=== PATIENT | male | born 1950 | race Two or more races ===

== ENCOUNTER 2021-09-25 12:06 | Emergency (ER) | payer MEDICARE, OTHER ==
[~2021-09-25] VITALS: Ht 182.9 cm; Wt 99.8 kg
[2021-09-25 13:03] LABS: Urine Bacteria NONE SEEN /hpf (None Seen); Urine Blood Negative /uL (Negative); Urine WBC 1 /hpf (0 - 3)
[2021-09-25 13:43] LABS: Basophils # (auto) 0.1 10 ^3/uL (0-0.2); Basophils % (auto) 0.7 % (0.0-2.0); Eosinophils # (auto) 0 10 ^3/uL (0-0.8); Eosinophils % (auto) 0.2 % (0.0-7.0); Hematocrit 45.8 % (41.0-53.0); Hemoglobin 15.6 g/dL (13.5-17.5); Lymphocytes # (auto) 0.9 10 ^3/uL (0.4-5.4); Lymphocytes % (auto) 9.6 % (10.0-50.0); Mean Corpuscular Hemoglobin 30.6 pg (28.0-32.0); Mean Corpuscular Hgb Conc. 34.1 g/dL (32.0-36.0); Mean Corpuscular Volume 89.9 fL (80.0-100.0); Monocytes # (auto) 0.4 10 ^3/uL (0-1.3); Monocytes % (auto) 4.5 % (0.0-12.0); Neutrophils # (auto) 7.5 10 ^3/uL (1.6-8.6); Red Cell Distribution Width 13.9 % (11.8-14.3); White Blood Cell 8.8 10^3/uL (4.4-10.8)
[2021-09-25] MEDS ORDERED: ONDANSETRON HCL 4 MG/2 ML VIAL IV ONE (14:00)
[2021-09-25] MEDS ORDERED: SODIUM CHLORIDE 0.9% 1,000 ML IV ONE (14:00)
[2021-09-25 14:01] LABS: Albumin 4.2 g/dL (3.4-5.0); Calcium 9.2 mg/dL (8.5-10.1); Potassium 4.6 mmol/L (3.5-5.1)
[2021-09-25 14:05] LABS: Bilirubin, Total 0.7 mg/dL (0.2-1.0); Total Protein 7.9 g/dL (6.4-8.2)
[2021-09-25 15:41] VITALS: BP 136/60
== END 2021-09-25 15:43 | disposition home or self-care (01) ==
LOC: ER 12:06
DX: R51.9 Headache, unspecified (principal); I10 Essential (primary) hypertension; E11.65 Type 2 diabetes mellitus with hyperglycemia
CPT/HCPCS: 36415; 70450; 80053; 81001; 84484; 85025; 96361; 96374; 99284; J2405; J7030

== ENCOUNTER 2025-03-17 06:14 | Inpatient (IN) | payer OTHER ==
[~2025-03-17] VITALS: Ht 182.9 cm; Wt 98.2 kg
[~2025-03-17 06:14] MED LIST: ATOR-47 PO; CYCL-611 PO; DEXT4CHW PO; DOXY-286 PO; EMPA1TAB3 PO; INSU100I28 IJ; INSU100I51 SC; KRIL1CAP15 PO; METF-372 PO; MULT-1018 PO; OXYB5SOL PO; SEMA1INJ2 SC
[2025-03-17] MEDS: ceFAZolin 2 GM/D5W50ml 50 ML IV ONE (06:17)
[2025-03-17] MEDS: levoFLOXacin 500MG 100 ML IV ONE (06:29)
[2025-03-17] MEDS: TRANEXAMIC ACID 20 ML ONE (06:30)
[2025-03-17] MEDS: LIDOCAINE W/ EPINEPHRINE 1% 20ML VIAL ONE (06:31)
[2025-03-17] MEDS: ONDANSETRON HCL 4 MG/2 ML VIAL IV ONE (07:15)
[2025-03-17] MEDS ORDERED: hydrALAZINE HCL 20 MG/ML VL IV PRN (07:15)
[2025-03-17] MEDS: METOCLOPRAMIDE HCL 5MG/ml INJ 2ml VIAL IV ONE (07:15)
[2025-03-17] MEDS: GELATIN 1 SPONGE SIZE 100 TOP ONE (07:22)
[2025-03-17] MEDS: THROMBIN (BOVINE) 5000 UNIT SOL VIAL ONE (07:22)
[2025-03-17] MEDS ORDERED: MIDAZOLAM HCL 2MG/2ML 2ml VIAL (1mg/ml) ONE (07:32)
[2025-03-17] MEDS ORDERED: fentaNYL CITRATE 100 MCG/2 ML VL ONE (07:32)
[2025-03-17] MEDS ORDERED: LIDOCAINE 1% INJ PF 5ML AMP ONE (07:33)
[2025-03-17] MEDS ORDERED: ROCURONIUM 10MG/ML 10ML VIAL IV ONE (07:33)
[2025-03-17] MEDS ORDERED: METOCLOPRAMIDE HCL 5MG/ml INJ 2ml VIAL ONE (07:33)
[2025-03-17] MEDS ORDERED: ONDANSETRON HCL 4 MG/2 ML VIAL ONE (07:33)
[2025-03-17] MEDS ORDERED: PROPOFOL 10 MG/ML 20 ML IV ONE ×3 (07:33→10:01)
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
--- NOTE | 2025-03-17 07:49 | DVHPN2 ---
Progress Note - Surgical Date Seen: Mar 18, 2025 Post op day Post op day: 1 Subjective Review of Systems: HEENT:Normal, CVS:Normal, RESPIRATORY:Normal, GI:Normal, :Normal, MSK:Abnormal (Lower leg pain right greater than left shooting burning sensation prior to surgery), NEURO:Abnormal (Pain with resistance to lifting knees off bed right greater than left prior to surgery) Objective Vital signs Vital Sign Date Time Temp Pulse Resp B/P (MAP) Pulse Ox O2 Delivery O2 Flow Rate FiO2 03/17/25 06:20 98.1 63 16 124/67 (86) 98 98.1 Total Intake and Output 03/16/25 03/16/25 03/17/25 15:00 23:00 07:00 Intake Total 100 ml Balance 100 ml Medications Current Medications Medications Dose Ordered Sig/Petros Route Start Time Stop Time Status Last Admin Dose Admin Hydralazine HCl 5 mg Q10M PRN IV 03/17/25 07:15 03/17/25 08:06 Hydromorphone HCl 0.5 mg Q10M PRN IV 03/17/25 07:15 03/17/25 07:56 Examination: GENERAL:Normal, HEENT:Normal, NECK:Normal, LUNGS:Normal, C VS:Normal, ABDOMEN:Normal, MSK:Normal (improving mobility), SKIN:Normal (jaquan seal intact, power source fuctioning drains intact), NEURO:Normal (improved in preoperative symptoms, however pain is troublesome), :Normal Problem List/Assessment/Plan Problems: (1) Postoperative pain after spinal surgery (2) Muscle spasm of back Assessment and Plan POD # 1 events of today, Patient experiencing expected postoperative pain, muscle spasms are stronger augustina n we would like - Flexeril discontinued and Soma added Patient is participating in independent movement We will keep drains in and reassess output tomorrow -Disposition: -Pending -Discharge RX: Pending -Follow up appointment: with Dr Uribe on prescheduled appointment in two weeks [id number] [facility] [address] [place] [id number] -Pain: - IV pain meds post op day 1, with PO supplementation, goal is to progress weaning off IV medications and control pain with PO only. morphine 1mg q 4 hours (PAIN 7-10) - P.O. analgesics:Tylenol 650MG (PAIN 1-3) [place] 10/325 mg (PAIN 4-6) - Muscle relaxers scheduled administration. This is a beneficial medications for the incisional pain as it is mostly related to muscle spasms. Flexeril 10 mg TID - Cepacol throat lozenges as needed for sore throat -Antibiotics Operative recommendations: -Postoperative dose:-Post operative antibiotics cefazolin 1 g IV piggyback every 8 hours x 48 hours total of 6 doses -DVT PPX: -Hold all chemical DVT/ blood thinners for 14 days postoperatively -use mechanical DVT PPX such as SCD's, ambulation -Activity: -Pending PT evaluation and patients progression -Sit at side of bed for meals -Goal: Ambulate independently and safely (may use assistive devices if needed) -Medical Therapy goals: -Afebrile- Patient may develop a expected post operative fever by day 2-3, this may not be accompanied with a elevation in WBC. if fever develops: Acetaminophen for fever. Albuterol nebulizer Tx every 12 hours for 24 hours to facilitate adequate lung expansion and prevent development of atelectasis. -Euglycemic: bloods sugars under 130mmol/L for optimal healing -Normotensive: Avoid events of hypertension. This helps to keep post operative healing intact and avoids destabilization of beneficial hemostatic coagulation. -Lumbar: -If patient is comfortable encouraged the patient to lay on their side to facilitate wound healing -Drains: -Hemovac drains: These will be to full compression unless otherwise ordered. Please record and document output AND characteristic of fluid present independently EVERY 6 hours more often as needed. if there in no output indicate this by documenting 0ml. If output is greater than 100 ml in one hour of edie blood call provider. These drains will be removed once the drainage is at a acceptable level (generally less than 100ml in 24 hours) -Jaquan dressing: This will stay in place and will be removed at the patients follow up visit. Nursing is to assess the seal and power source. The seal should be intact and the power source should have a green flashing light indicating it is functioning well. Batteries can last up to 14 days. If a leak develops the dressing edges can be reinforced with a Tegaderm dressing to reestablish intact seal. The Jaquan dressing is NOT a wound vac. This does not get changed, it does not need home health management. -Record output independently, drain 1. Is a deep drain and drain 2. Is a superficial drain. Wound drainage is described by type, color, amount, and odor. Drainage can be 1 Serous: Clear and thin, may be present in healing healthy wound. 2 Serosanguineous containing blood may also be present and healthy healing wound 3. Sanguinous primarily blood 4. Purulent this is thick, white, and pus like. It may be indicated to give of a infection and should constitute a call to the provider immediately with the plan that the sample should be cultured. -Melvin: discontinued in OR -Dressings Take care not to disrupt the JAQUAN dressing seal. If there is a break in the seal it can be trouble shot with a Tegaderm dressing. -Dressing to Hemovac drains may be changed once the drains have been removed by the provider. -Bowel management: -Colace 100mg bid -Diet: -Clear liquid diet and advance as patient tolerates within dietary limitations ( example: diabetic, Cardiac) -Incentive Spirometer: -10 x hour while awake, RN please educate and observe repeat demonstration, have IS at bedside POD #1 -X-rays: - none indicated at this time -Consults: -Physical Therapy evaluation, treatment recommendations, and discharge re commendations Call with questions Yunior Wilson ACNP- Orthopaedic Spine Surgery nurse practitioner For Dr Kiley Uribe Patient was examined, chart reviewed, labs evaluated, and diagnostic studies and findings analyzed. Case was discussed with Dr. Feliberto Uribe who formulated the plan of care. This medical document was created using an electronic medical record system with [employer] dictation system. Although this document has been carefully reviewed, there might still be some phonetic and typographical errors. These areas are purely typographical due to imperfections of the software programs, and do not reflect any compromise in the patient's medical care. Plan discussed with Plan discussed with: Patient Visit Coding Surgery Date of Service if different f: Mar 17, 2025 Billing Provider: CHRISTINA WILSON NP Surgery Visit Codes: NOT BILLABLE CHRISTINA WILSON NP Mar 17, 2025 07:49
[2025-03-17] MEDS ORDERED: ePHEDrine SULFATE 50 MG/ML AMP ONE (08:17)
[2025-03-17] MEDS ORDERED: fentaNYL CITRATE 5 ML ONE (08:36)
[2025-03-17] MEDS ORDERED: ONDANSETRON HCL 4 MG/2 ML VIAL IV PRN (11:00)
[2025-03-17] MEDS ORDERED: D5W/SOD CHLO 0.9% 1,000 ML IV SCH (11:00)
[2025-03-17] MEDS ORDERED: NITROGLYCERIN 0.4 MG SL TAB SL PRN (11:00)
[2025-03-17] MEDS ORDERED: MORPHINE SULFATE INJ 2 MG/ml SYRG IV PRN (11:00)
--- NOTE | 2025-03-17 11:07 | DVHOP2 ---
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 These include but are not limited to complications of anesthesia, postoperative infection, incomplete relief of symptoms, recurrence of symptoms, damage to blood vessels, nerves and tendons, deep venous thrombosis, pulmonary embolism and possible need for repeat surgery in the future. Name of Procedure Performed see detailed note Procedure Details Procedure Details: Pre-op Diagnosis: Post laminectomy syndrome/ Lumbar Degenerative Disk Disease and Lumbar Spinal Stenosis causing Incapacitating back pain, radiculopathy/n eurogenic claudication and progressive neurologic deficit Post-op Diagnosis: Lumbar Degenerative Disk Disease and Lumbar Spinal Stenosis causing Incapacitating back pain, radiculopathy/neurogenic claudication and progressive neurologic deficit Procedure: Revision lumbar 5 laminotomies/ foraminotomies and facetectomies to decompress central canal and Lumbar 5 nerve roots Revision lumbar 4 laminotomies/ foraminotomies and facetectomies to decompress central canal and Lumbar 4 nerve roots Bilateral Sacral 1 Laminotomies/Foraminotomies/Facetectomies to decompress the central canal and Bilateral Sacral 1 nerve Roots Lumbar 4 to 5 posterior spinal interbody fusion with PEEK cage Lumbar 5 to sacral 1 posterior spinal inter transverse fusion with bone graft Lumbar 4 to sacral 1 posterior spinal instrumentation with pedicle screws Local Bone Autograft For Fusion Allograft Bone Substitute (Bacterin) to augment Fusion Use of Demineralized Bone Matrix to Augment Fusion Microscope For Microdissection Surgeon: Feliberto Uribe MD Assist: ROBYN Sanchez Anesthesia: General Fluids and EBL: See anesthesia note Patient was seen in the Pre Anesthesia Care Unit (PACU) and the operative site was initialed by me. All questions were answered to the patients satisfaction and chart reviewed. The patient was taken to the operative room where pre- operative antibiotics were given 30 minutes prior to incision. General anesthesia was induced and neuro-monitoring leads placed. Melvin catheter was placed. The patient was turned prone onto the [facility] spinal table. While positioning, I made sure that the belly was free to allow proper expansion of the lungs. The hips were extended and all bony prominences padded. The shoulders were abducted 80 degree and the elbows flexed 100 degrees with no tension on the brachial plexus. I check the foot arterial pulses and they were palpable. The patient was prepped and draped and time out was taken at this time per usual protocol. At this time, the C-arm fluoroscope was brought in and was used to cristian the incision borders proximally and distally. I used the previous lumbar incision and extended it proximally and distally Using a Number 10 Blade, an incision was made extending it proximally and distally per C arm cristian from the posterior spinous process of lumbar 4 to sacral 1 , down to the lumbo-dorsal fascia. There was extensive scarring on the right side at the lumbar 5 and 4 laminae. All bleeding was controlled with electrocautery. Self-retaining retractors were placed. Electrocautery was then used to take down the lumbo-dorsal fascia, to free the muscle off the bone bilaterally. A Freeman retractor was placed over the posterior spinous process proximally and a lateral C-arm fluoroscope image was taken to insure we were at the correct level. Next, using bovie electro cautery, The deep fascia laterally to the facet joints was removed to expose the transverse processes of lumbar 4,5 and sacral 1 while taking care to avoid injuring the facet capsule at the proximal end of the incision. Next, the microscope was bought in for visualization and using a Luxell rongeur, the posterior spinous process of lumbar 4,5 and sacral 1 were removed and the bone was saved for use as local autograft. Care had to be taken since there was only incomplete posterior spinous processes remaining and it was important to not injure the dura at this step. I used alternating Kerison 2 mm and 3 mm rongeurs to perform revision laminotomies/foraminotomies and facetectomies of lumbar 5 and 4 and bilateral laminotomies/foramintomies of sacral 1 to decompress the central canal. I used curved curettes to released the scarred dura from the superior articular facets of lumbar 4 and 5 bilaterally. Next using alternating Kerison 2mm and 3 mm rongeurs, the superior articular facets of lumbar 4,5, and sacral 1 were removed bilaterally to decompress the lateral recess (facetectomies) and then extended proximally to decompress the foramen bilaterally (foraminotomies). I used a ball tipped nerve probed to insure that the respective nerve roots were able to be mobilized 5mm in each direction were unimpeded in the lateral recess and foramen. Next I carefully inspected the dura to make sure no durotomy was visible and it was not. Next I retracted the sacral 1 nerve on the right and used increasing size sussy and curved curettes to prepare the disc space down to clean and bleeding bone. Next sued increasing size sussy and placed a PEEK interbody device fulled with bone graft in the L4/5 space. I used local bone autograft to place in the intertransverse space at L4/5 and L/5 and S1 . I covered the exposed dura with gelfoam soaked in thrombin and the microscope was wheeled away from the operative filed. The C-arm fluoroscope was brought in and perfect AP views of the lumbar 4, 5 and sacral 1 pedicles were obtained. I placed bilateral pedicle screws at these levels by: using a Lenke awl to make a towing pilot hole, then a ball tip robe to make sure there was no pedicle breach, then a tap to prepare the track and a 6.5 mm diameter and 45mm for lumbar 4, 5 and for sacral 1 a 35mm length pedicle screw was placed bilaterally. This step to place bilateral pedicle screws was repeated up to the lumbar 4, 5 and sacral 1 level. Next, the c-arm fluoroscope took an AP and lateral x-ray to ensure proper placement of the pedicle screws. Next, the neuro-stimulation probe was placed over the tip of each screw and each screw stimulated only after a current greater than 10 mA was delivered to the screw. Next , I took a Midas Manish Drill to decorticate the transverse process which were exposed and local bone graft, Bacterin allograft bone substitute and Demineralized bone matrix were placed along the inter transverse process intervals bilaterally (the fusion bed). Next a curved nenita sized to fit the pedicle screw interval was placed and secured to each pedicle screw using set screws, The set screws were tightened using a torque screwdriver (set to 10 N*M torque) to secure the nenita to the pedicle screws bilaterally. Final AP and lateral C arm fluoroscopic films were taken at this time. Next a 10 Indian diameter Hemovac drain was laced deep to the lumbo- dorsal fascia. The lumbo-dorsal fascia was closed with interrupted 0-Vicry sutures. The subcutaneous tissue was closed with interrupted 2-0 Vicryl sutures. The skin was closed with 2-0 running nylon subcuticular suture. Sterile dressings were place. The pt. was turned supine onto the stretcher, extubated and taken to the recovery room in stable condition. CPT Code: [id number] Condition Stable Disposition Still a Patient FELIBERTO URIBE MD Mar 17, 2025 11:07
[2025-03-17 11:34] VITALS: O2SAT 100
[2025-03-17] MEDS: ACETAMINOPHEN IV 1000 MG/100ML (10MG/ML) IV ONE (12:02)
[2025-03-17] MEDS: ACETAMINOPHEN IV 100 ML IV ONE (12:12)
[2025-03-17] MEDS: HYDROmorphone HCL 2 MG/ML VL/or syr ONE (12:22)
[2025-03-17] MEDS: HYDROmorphone HCL 2 MG/ML VL/or syr IV PRN (12:23)
[2025-03-17] MEDS: LACTATED RINGER'S 1,000 ML IV SCH (13:00)
--- NOTE | 2025-03-17 13:10 | DVH ---
C-ARM FLUOROSCOPY: PROCEDURE: L4-S1 decompression FLUOROSCOPY TIME: 165 seconds DAP: 135 mgy FINDINGS: Spot intraoperative C arm radiographs demonstrating lumbosacral spine decompression. IMPRESSION: Please refer to surgical report for detailed findings.
[2025-03-17] MEDS: CYCLOBENZAPRINE HCL 10 MG TAB PO SCH (13:14)
[2025-03-17] MEDS: ceFAZolin 1GM/50ML 50 ML IV SCH (14:00)
[2025-03-17] MEDS: HYDROcodone-ACET 10/325MG TAB PO PRN (14:44)
[2025-03-17] MEDS: metFORMIN HYDROCHLORIDE 500 MG TAB PO SCH (18:10)
[2025-03-17] MEDS: MORPHINE SULFATE INJ 2 MG/ml SYRG IV PRN (18:14)
[2025-03-17 20:00] VITALS: PULSE 109; RESP 16; O2SAT 95
[2025-03-17 20:57] VITALS: BP 144/81; PULSE 85; RESP 16; TEMP 98.6; O2SAT 95
[2025-03-17] MEDS: DOCUSATE SOD 100 MG CAP PO SCH (21:49)
[2025-03-18] VITALS (7 sets, daily range): BP systolic 114–156; BP diastolic 62–80; PULSE 87–142; RESP 16–20; TEMP 97.8–99.7; O2SAT 90–95
[2025-03-18] MEDS: CARISOPRODOL 350 MG TAB PO ONE (15:52)
--- NOTE | 2025-03-18 16:54 | DVHINCON2 ---
Date Seen: Mar 18, 2025 Referring Physician Orthopedic spine surgery. Reason for Consultation Medical management. History of Present Illness 74-year-old male with a known history of insulin-dependent diabetes mellitus type 2, hypertension, dyslipidemia initially admitted to the hospital with post laminectomy syndrome. Patient underwent lumbar spine surgery at L 4-5 S1 level. Patient is currently denies any fevers chills headache denies any chest pain shortness of breath. Past Medical History Insulin-dependent diabetes mellitus type 2 Hypertension Dyslipidemia Past Surgical History Status post lumbar spine surgery at L four five S1 level. Family History: Patient reports no known family medical history. Allergies: Coded Allergies: Insulin Glargine (Unverified Allergy, Severe, anaphylaxis, rash , 03/15/25) Home Meds Reported Medications Insulin Aspart (Novolog) 100 Unit/Ml Inj, 100 UNIT IJ BID, INJ 03/15/25 Semaglutide (Ozempic) 8 Mg/3 Ml Inj, 10 MG SC QWEEKLY, INJ 03/15/25 Cyclobenzaprine HCl (Cyclobenzaprine Hydrochlo) 10 Mg Tab, 10 MG PO DAILY, TAB 03/15/25 Multiple Vitamin (Multivitamins) Tab, 1 TAB PO DAILY, #30 TAB 2 Refills 03/15/25 Insulin Aspart (Insulin Aspart Flexpen) 100 Unit/Ml Inj, 100 UNIT SC DAILY@D INNER, INJ 03/15/25 Dextrose (Glucose) 4 Gm Chw, 4 GM PO PRN, TAB.CHEW 03/15/25 Metformin Hydrochloride (Metformin Hcl) 1,000 Mg Tab, 1000 MG PO BID, TAB 03/15/25 Krill Oil (Krill Oil) 1,000 Mg Cap, 1000 MG PO DAILY, CAP 03/15/25 Oxybutynin Chloride (Oxybutynin Chloride) 5 Mg/5 Ml Norma, 10 MG PO, ML 03/15/25 Empagliflozin (Jardiance) 25 Mg Tab, 25 MG PO DAILY, TAB 03/15/25 Doxycycline Hyclate (DOXYCYCLINE HYCLATE) 100 Mg Tab, 100 MG PO BID, TAB 03/15/25 Atorvastatin Calcium (ATORVASTATIN CALCIUM) 80 Mg Tab, 80 MG PO DAILY, TAB 03/15/25 Current Medications Current Medications Medications (Trade) Dose Ordered Sig/Petros Route PRN Reason Start Time Stop Time Status Last Admin Docusate Sodium (Colace Capsule) 100 mg BID PO 03/17/25 22:00 03/18/25 08:13 Metformin HCl (Glucophage) 1,000 mg BIDWM PO 03/17/25 18:00 03/18/25 08:13 Carisoprodol (Soma Tablet) 350 mg TID PO 03/18/25 22:00 Morphine Sulfate 2 mg Q4HP PRN IV SEVERE PAIN (7-10 PAIN SCALE) 03/18/25 15:45 Review of Systems Twelve review of system are negative besides mentioned above. 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 Labs/Diagnostic Data Labs Test 03/17/25 11:40 Range/Units POC Glucose 131 H 70-106 mg/dl Assessment 74-year-old male with a known history of insulin-dependent diabetes mellitus type 2, hypertension, dyslipidemia is here for elective surgery. 1. Hypertension 2. Diabetes mellitus type 2 3. Dyslipidemia 4. Post laminectomy syndrome status post L4-5 S1 spine surgery. -continue pain meds as needed, follow up orthopedic spine surgery, Accu-Cheks q.a.c. and HS low-dose sliding scale. Plan discussed with: Patient Date of Service: Mar 18, 2025 Billing Provider: DEWEY GIBBONS MD Common Visit Codes: NOT BILLABLE DEWEY GIBBONS MD Mar 18, 2025 16:54
[2025-03-18] MEDS: CARISOPRODOL 350 MG TAB PO SCH (22:22)
[2025-03-18] MEDS: MORPHINE SULFATE INJ 2 MG/ml SYRG IV PRN (22:37)
[2025-03-19] VITALS (7 sets, daily range): BP systolic 128–163; BP diastolic 61–74; PULSE 91–140; RESP 17–20; TEMP 98.1–99.6; O2SAT 92–95
--- NOTE | 2025-03-19 11:10 | DVHPN2 ---
Progress Note - Surgical Date Seen: Mar 17, 2025 Post op day Post op day: 2 Subjective Patient reports: No new complaints, Feels better Review of Systems: HEENT:Normal, CVS:Normal, RESPIRATORY:Normal, GI:Normal, :Normal, MSK:Abnormal (Lower leg pain right greater than left shooting burning sensation prior to surgery), NEURO:Normal Objective Vital signs Vital Sign Date Time Temp Pulse Resp B/P (MAP) Pulse Ox O2 Delivery O2 Flow Rate FiO2 03/19/25 09:00 98.1 101 19 134/69 (90) 92 98.1 03/19/25 08:20 Room Air* 0 21 Total Intake and Output 0 03/18/25 03/18/25 03/19/25 15:00 23:00 07:00 Intake Total 118 ml 1050 ml 400 ml Output Total 530 ml 1000 ml Balance -412 ml 1050 ml -600 ml Medications Current Medications Medications Dose Ordered Sig/Petros Route Start Time Stop Time Status Last Admin Dose Admin Ondansetron HCl 4 mg Q4HP PRN IV 03/17/25 11:00 Acetaminophen 650 mg Q6HP PRN PO 03/17/25 11:00 Acetaminophen/ Hydrocodone Bitart 1 tab Q6HP PRN PO 03/17/25 11:00 03/19/25 06:45 1 TAB Docusate Sodium 100 mg BID PO 03/17/25 22:00 03/19/25 09:39 100 MG Nitroglycerin 0.4 mg Q5MINP PRN SL 03/17/25 11:00 Morphine Sulfate 2 mg Q30M PRN IV 03/17/25 11:00 Metformin HCl 1,000 mg BIDWM PO 03/17/25 18:00 03/19/25 08:41 1,000 MG Lactated Ringer's 1,000 ml @ 75 mls/hr [id number] IV 03/17/25 13:00 03/19/25 05:09 75 MLS/HR Carisoprodol 350 mg TID PO 03/18/25 22:00 03/19/25 06:31 350 MG Morphine Sulfate 2 mg Q4HP PRN IV 03/18/25 15:45 03/18/25 22:37 2 MG Examination: GENERAL:Normal, HEENT:Normal, NECK:Normal, LUNGS:Normal, CVS:Normal, ABDOMEN:Normal, MSK:Normal (Muscle skeletal symptoms are improving from his preoperative state), SKIN:Normal (Jaquan dressing intact drains intact), NEURO:Normal (Pain with resistance to lifting knees off bed right greater than left prior to surgery- currently), :Normal (Patient is improving and progressing to discharge) Problem List/Assessment/Plan Problems: (1) Postoperative pain after spinal surgery (2) Muscle spasm of back Assessment and Plan POD # 2 events of today, Patient experiencing expected postoperative pain, muscle spasms are reported to be improved with Soma Patient is participating in independent movement- patient is up and ambulating independently, patient is demonstrating abdominal distention he is passing flatus however has not had a bowel movement medications ordered We will keep drain #1 due to output of 150 mL in 24 hours and reassess output tomorrow Drain 2. Was discontinued without event Patient is progressing well -Disposition: -Pending -Discharge RX: Pending -Follow up appointment: with Dr Uribe on prescheduled appointment in two weeks [phone] [facility] [address] [place] [id number] -Pain: - IV pain meds post op day 1, with PO supplementation, goal is to progress wean ing off IV medications and control pain with PO only. morphine 1mg q 4 hours (PAIN 7-10) - P.O. analgesics:Tylenol 650MG (PAIN 1-3) [place] 10/325 mg (PAIN 4-6) - Muscle relaxers scheduled administration. This is a beneficial medications for the incisional pain as it is mostly related to muscle spasms. Flexeril 10 mg TID - Cepacol throat lozenges as needed for sore throat -Antibiotics Operative recommendations: -Postoperative dose:-Post operative antibiotics cefazolin 1 g IV piggyback every 8 hours x 48 hours total of 6 doses -DVT PPX: -Hold all chemical DVT/ blood thinners for 14 days postoperatively -use mechanical DVT PPX such as SCD's, ambulation -Activity: -Pending PT evaluation and patients progression -Sit at side of bed for meals -Goal: Ambulate independently and safely (may use assistive devices if needed) -Medical Therapy goals: -Afebrile- Patient may develop a expected post operative fever by day 2-3, this may not be accompanied with a elevation in WBC. if fever develops: Acetaminophen for fever. Albuterol nebulizer Tx every 12 hours for 24 hours to facilitate adequate lung expansion and prevent development of atelectasis. -Euglycemic: bloods sugars under 130mmol/L for optimal healing -Normotensive: Avoid events of hypertension. This helps to keep post operative healing intact and avoids destabilization of beneficial hemostatic coagulation. -Lumbar: -If patient is comfortable encouraged the patient to lay on their side to facilitate wound healing -Drains: -Hemovac drains: These will be to full compression unless otherwise ordered. Please record and document output AND characteristic of fluid present independently EVERY 6 hours more often as needed. if there in no output indicate this by documenting 0ml. If output is greater than 100 ml in one hour of edie blood call provider. These drains will be removed once the drainage is at a acceptable level (generally less than 100ml in 24 hours) -Jaquan dressing: This will stay in place and will be removed at the patients follow up visit. Nursing is to assess the seal and power source. The seal should be intact and the power source should have a green flashing light indicating it is functioning well. Batteries can last up to 14 days. If a leak develops the dressing edges can be reinforced with a Tegaderm dressing to reestablish intact seal. The Jaquan dressing is NOT a wound vac. This does not get changed, it does not need home health management. -Record output independently, drain 1. Is a deep drain and drain 2. Is a superficial drain. Wound drainage is described by type, color, amount, and odor. Drainage can be 1 Serous: Clear and thin, may be present in healing healthy wound. 2 Serosanguineous containing blood may also be present and healthy healing wound 3. Sanguinous primarily blood 4. Purulent this is thick, white, and pus like. It may be indicated to give of a infection and should constitute a call to the provider immediately with the plan that the sample should be cultured. -Melvin: discontinued in OR -Dressings Take care not to disrupt the JAQUAN dressing seal. If there is a break in the seal it can be trouble shot with a Tegaderm dressing. -Dressing to Hemovac drains may be changed once the drains have been removed by the provider. -Bowel management: -Colace 100mg bid -Diet: -Clear liquid diet and advance as patient tolerates within dietary limitations ( example: diabetic, Cardiac) -Incentive Spirometer: -10 x hour while awake, RN please educate and observe repeat demonstration, have IS at bedside POD #1 -X-rays: - none indicated at this time -Consults: -Physical Therapy evaluation, treatment recommendations, and discharge recommendations Call with questions Yuinor Wilson ACNP- Orthopaedic Spine Surgery nurse practitioner For Dr Kiley Uribe Patient was examined, chart reviewed, labs evaluated, and diagnostic studies and findings analyzed. Case was discussed with Dr. Feliberto Uribe who formulated the plan of care. This medical document was created using an electronic medical record system with [employer] dictation system. Although this document has been carefully reviewed, there might still be some phonetic and typographical errors. These areas are purely typographical due to imperfections of the software programs, and do not reflect any compromise in the patient's medical care. My Orders My Orders Orders - CHRISTINA WILSON NP Procedure Category Date Status Time Carisoprodol Tablet PHA 03/18/25 In Process (Soma Tablet) 22:00 Plan discussed with Plan discussed with: Patient, Other (Cyn cabrera 12/29/2003) Visit Coding Surgery Date of Service if different f: Mar 17, 2025 Billing Provider: CHRISTINA WILSON NP Surgery Visit Codes: NOT BILLABLE CHRISTINA WILSON NP Mar 19, 2025 11:10
[2025-03-19 17:35] LABS: Basophils # (auto) 0.1 10 ^3/uL (0-0.2); Basophils % (auto) 0.5 % (0.0-2.0); Eosinophils # (auto) 0.1 10 ^3/uL (0-0.8); Eosinophils % (auto) 0.5 % (0.0-7.0); Hematocrit 42.3 % (41.0-53.0); Hemoglobin 14.2 g/dL (13.5-17.5); Lymphocytes # (auto) 1.1 10 ^3/uL (0.4-5.4); Lymphocytes % (auto) 8.5 % (10.0-50.0); Mean Corpuscular Hemoglobin 30.4 pg (28.0-32.0); Mean Corpuscular Hgb Conc. 33.6 g/dL (32.0-36.0); Mean Corpuscular Volume 90.7 fL (80.0-100.0); Monocytes # (auto) 1.1 10 ^3/uL (0-1.3); Monocytes % (auto) 8.5 % (0.0-12.0); Neutrophils # (auto) 10.6 10 ^3/uL (1.6-8.6); Platelet Count (auto) 229 10^3/uL (140-450); Red Blood Cells 4.66 10^6/uL (4.5-5.90); Red Cell Distribution Width 13.4 % (11.8-14.3)
[2025-03-19 17:41] LABS: Chloride 101 mmol/L (98-107); Potassium 4.1 mmol/L (3.5-5.1); Sodium 138 mmol/L (136-145)
[2025-03-19 17:42] LABS: Anion Gap 9 (5-15); Calcium 9.9 mg/dL (8.7-10.4); Carbon Dioxide 28 mmol/L (20-31)
[2025-03-19 17:47] LABS: BUN/Creatinine Ratio 12.2 (10.0-20.0); Blood Urea Nitrogen 12 mg/dL (9-23)
[2025-03-19 18:19] LABS: Glucose 265 mg/dL (74-106)
[2025-03-19] MEDS: MAGNESIUM CITRATE SOLUTION 300 ML BTL PO ONE (18:22)
--- NOTE | 2025-03-19 18:40 | DVHPN2 ---
Subjective Overnight events noted patient is complaining of right lower extremity numbness Reviewed: Care Plan Changes from previous H/P or p: No Changes Objective Vitals Vital Signs Date Time Temp Pulse Resp B/P (MAP) Pulse Ox O2 Delivery O2 Flow Rate FiO2 03/19/25 17:00 98.1 108 20 163/74 (103) 95 98.1 03/19/25 08:20 Room Air* 0 21 Intake/Output Intake and Output 03/19/25 07:00 Intake Total 1568 ml Output Total 1530 ml Balance 38 ml Intake Oral 718 ml IV Total 850 ml Output Urine Total 1450 ml Drainage Total 80 ml # Voids 2 Exam HEENT pupils are reactive Neck is supple CV is S1-S2 regular rate and rhythm Respiratory are clear GI positive bowel sound 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 Medications Current Medications Medications Dose Ordered Sig/Petros Route Start Time Stop Time Status Last Admin Dose Admin Ondansetron HCl 4 mg Q4HP PRN IV 03/17/25 11:00 Acetaminophen 650 mg Q6HP PRN PO 03/17/25 11:00 Acetaminophen/ Hydrocodone Bitart 1 tab Q6HP PRN PO 03/17/25 11:00 03/19/25 06:45 1 TAB Docusate Sodium 100 mg BID PO 03/17/25 22:00 03/19/25 09:39 100 MG Nitroglycerin 0.4 mg Q5MINP PRN SL 03/17/25 11:00 Morphine Sulfate 2 mg Q30M PRN IV 03/17/25 11:00 Metformin HCl 1,000 mg BIDWM PO 03/17/25 18:00 03/19/25 18:07 1,000 MG Lactated Ringer's 1,000 ml @ 75 mls/hr [id number] IV 03/17/25 13:00 03/19/25 18:07 75 MLS/HR Carisoprodol 350 mg TID PO 03/18/25 22:00 03/19/25 14:17 350 MG Morphine Sulfate 2 mg Q4HP PRN IV 03/18/25 15:45 03/18/25 22:37 2 MG Laboratory Results Laboratory Tests 03/19/25 17:13 Chemistry Test 03/19/25 17:13 Calcium Level 9.9 mg/dL (8.7-10.4) Assessment/Plan Assessment/Plan 74-year-old male with a known history of insulin-dependent diabetes mellitus type 2, hypertension, dyslipidemia is here for elective surgery. 1. Hypertension 2. Diabetes mellitus type 2 3. Dyslipidemia 4. Post laminectomy syndrome status post L4-5 S1 spine surgery. -continue pain meds as needed, follow up orthopedic spine surgery, Accu-Cheks q.a.c. and HS low-dose sliding scal Plan discussed with: Patient Date of Service: Mar 19, 2025 Billing Provider: DEWEY GIBBONS MD Common Visit Codes: NOT BILLABLE DEWEY GIBBONS MD Mar 19, 2025 18:40
[2025-03-20 01:00] VITALS: BP 152/77; PULSE 102; RESP 18; TEMP 98.7; O2SAT 92
[2025-03-20 05:00] VITALS: BP 135/76; PULSE 105; RESP 18; TEMP 98.9; O2SAT 90
[2025-03-20] MEDS: ACETAMINOPHEN 325 MG TAB PO PRN (08:58)
[2025-03-20 09:00] VITALS: BP 124/72; PULSE 103; RESP 18; TEMP 100.1; O2SAT 100
[2025-03-20] MEDS ORDERED: DEXTROSE (50%) 50ML SYRG IV PRN (12:15)
[2025-03-20] MEDS: InsuLIN REG 1unit/0.01ml Soln (100units/ml) SC SCH ×2 (12:28→21:32)
--- NOTE | 2025-03-20 12:36 | DVHPN2 ---
Progress Note - Surgical Date Seen: Mar 20, 2025 Post op day Post op day: 3 Subjective Patient reports: No new complaints, Feels better Review of Systems: MSK:Abnormal ((Lower leg pain right greater than left shooting burning sensation prior), NEURO:Abnormal ( (Pain with resistance to lifting knees off bed) Objective Vital signs Vital Sign Date Time Temp Pulse Resp B/P (MAP) Pulse Ox O2 Delivery O2 Flow Rate FiO2 03/20/25 09:00 100.1 103 18 124/72 (89) 100 100.1 03/20/25 08:00 Room Air* 0 21 Total Intake and Output 03/19/25 03/19/25 03/20/25 15:00 23:00 07:00 Intake Total 400 ml 240 ml Balance 400 ml 240 ml Medications Current Medications Medications Dose Ordered Sig/Petros Route Start Time Stop Time Status Last Admin Dose Admin Ondansetron HCl 4 mg Q4HP PRN IV 03/17/25 11:00 Acetaminophen 650 mg Q6HP PRN PO 03/17/25 11:00 03/20/25 08:58 650 MG Acetaminophen/ Hydrocodone Bitart 1 tab Q6HP PRN PO 03/17/25 11:00 03/19/25 06:45 1 TAB Docusate Sodium 100 mg BID PO 03/17/25 22:00 03/20/25 08:58 100 MG Nitroglycerin 0.4 mg Q5MINP PRN SL 03/17/25 11:00 Morphine Sulfate 2 mg Q30M PRN IV 03/17/25 11:00 Metformin HCl 1,000 mg BIDWM PO 03/17/25 18:00 03/20/25 08:57 1,000 MG Lactated Ringer's 1,000 ml @ 75 mls/hr [id number] IV 03/17/25 13:00 03/20/25 08:57 75 MLS/HR Carisoprodol 350 mg TID PO 03/18/25 22:00 03/20/25 06:08 350 MG Morphine Sulfate 2 mg Q4HP PRN IV 03/18/25 15:45 03/18/25 22:37 2 MG Diagnostic Test (Pha) 1 strip ACHS 03/20/25 17:00 Insulin Human Regular HS SC 03/20/25 22:00 Insulin Human Regular AC SC 03/20/25 12:30 Dextrose 50 ml UD PRN IV 03/20/25 12:15 Laboratory Laboratory Tests 03/19/25 17:13 Test 03/19/25 17:13 Range/Units Serum Glucose 265 H 74-106 mg/dL Examination: GENERAL:Normal, HEENT:Normal, NECK:Normal, LUNGS:Normal, CVS:Normal, MSK:Normal, SKIN:Normal (dressing intact, drain intact), NEURO:Normal (inmproving), :Normal Problem List/Assessment/Plan Problems: (1) Postoperative pain after spinal surgery (2) Muscle spasm of back Assessment and Plan POD # 3 events of today, Patient experiencing expected postoperative pain, muscle spasms are reported to be improved with Soma Patient is participating in independent movement- patient is up and ambulating independently, patient is demonstrating abdominal distention he is passing flatus however has not had a bowel movement medications ordered Patient had a fall event 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 plan to DC tomorrow am Patient is progressing well -Disposition: home with home health -Discharge RX: Pending -Follow up appointment: with Dr Uribe on prescheduled appointment in two weeks [id number] [facility] [address]berg [address] [place] [id number] -Pain: - IV pain meds post op day 1, with PO supplementation, goal is to progress weaning off IV medications and control pain with PO only. morphine 1mg q 4 hours (PAIN 7-10) - P.O. analgesics:Tylenol 650MG (PAIN 1-3) [place] 10/325 mg (PAIN 4-6) - Muscle relaxers scheduled administration. This is a beneficial medications for the incisional pain as it is mostly related to muscle spasms. Flexeril 10 mg TID - Cepacol throat lozenges as needed for sore throat -Antibiotics Operative recommendations: -Postoperative dose:-Post operative antibiotics cefazolin 1 g IV piggyback every 8 hours x 48 hours total of 6 doses -DVT PPX: -Hold all chemical DVT/ blood thinners for 14 days postoperatively -use mechanical DVT PPX such as SCD's, ambulation -Activity: -Pending PT evaluation and patients progression -Sit at side of bed for meals -Goal: Ambulate independently and safely (may use assistive devices if needed) -Medical Therapy goals: -Afebrile- Patient may develop a expected post operative fever by day 2-3, this may not be accompanied with a elevation in WBC. if fever develops: Acetaminophen for fever. Albuterol nebulizer Tx every 12 hours for 24 hours to facilitate adequate lung expansion and prevent development of atelectasis. -Euglycemic: bloods sugars under 130mmol/L for optimal healing -Normotensive: Avoid events of hypertension. This helps to keep post operative healing intact and avoids destabilization of beneficial hemostatic coagulation. -Lumbar: -If patient is comfortable encouraged the patient to lay on their side to facilitate wound healing -Drains: -Hemovac drains: These will be to full compression unless otherwise ordered. Please record and document output AND characteristic of fluid present independently EVERY 6 hours more often as needed. if there in no output indicate this by documenting 0ml. If output is greater than 100 ml in one hour of edie blood call provider. These drains will be removed once the drainage is at a acceptable level (generally less than 100ml in 24 hours) -Jaquan dressing: This will stay in place and will be removed at the patients follow up visit. Nursing is to assess the seal and power source. The seal should be intact and the power source should have a green flashing light indicating it is functioning well. Batteries can last up to 14 days. If a leak develops the dressing edges can be reinforced with a Tegaderm dressing to reestablish intact seal. The Jaquan dressing is NOT a wound vac. This does not get changed, it does not need home health management. -Record output independently, drain 1. Is a deep drain and drain 2. Is a superficial drain. Wound drainage is described by type, color, amount, and odor. Drainage can be 1 Serous: Clear and thin, may be present in healing healthy wound. 2 Serosanguineous containing blood may also be present and healthy healing wound 3. Sanguinous primarily blood 4. Purulent this is thick, white, and pus like. It may be indicated to give of a infection and should constitute a call to the provider immediately with the plan that the sample should be cultured. -Melvin: discontinued in OR -Dressings Take care not to disrupt the JAQUAN dressing seal. If there is a break in the seal it can be trouble shot with a Tegaderm dressing. -Dressing to Hemovac drains may be changed once the drains have been removed by the provider. -Bowel management: -Colace 100mg bid -Diet: tolerating -Incentive Spirometer: -10 x hour while awake, RN please educate and observe repeat demonstration, have IS at bedside POD #1 -X-rays: - none indicated at this time -Consults: -Physical Therapy evaluation, treatment recommendations, and discharge recommendations Call with questions Yunior Wilson [facility]- Orthopaedic Spine Surgery nurse practitioner For Dr Kiley Uribe Patient was examined, chart reviewed, labs evaluated, and diagnostic studies and findings analyzed. Case was discussed with Dr. Feliberto Uribe who formulated the plan of care. This medical document was created using an electronic medical record system with [employer] dictation system. Although this document has been carefully reviewed, there might still be some phonetic and typographical errors. These areas are purely typographical due to imperfections of the software programs, and do not reflect any compromise in the patient's medical care. Plan discussed with Plan discussed with: Patient, Other ([facility] x [id number]) Visit Coding Surgery Date of Service if different f: Mar 20, 2025 Billing Provider: CHRISTINA WILSON NP Surgery Visit Codes: NOT BILLABLE CHRISTINA WILSON NP Mar 20, 2025 12:36
[2025-03-20 13:00] VITALS: BP 117/92; PULSE 98; RESP 20; TEMP 98.3; O2SAT 95
--- NOTE | 2025-03-20 15:34 | DVHPN2 ---
Subjective Patient is feeling much better, still has two drains. 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 Medications Current Medications Medications Dose Ordered Sig/Petros Route Start Time Stop Time Status Last Admin Dose Admin Ondansetron HCl 4 mg Q4HP PRN IV 03/17/25 11:00 Acetaminophen 650 mg Q6HP PRN PO 03/17/25 11:00 03/20/25 08:58 650 MG Acetaminophen/ Hydrocodone Bitart 1 tab Q6HP PRN PO 03/17/25 11:00 03/19/25 06:45 1 TAB Docusate Sodium 100 mg BID PO 03/17/25 22:00 03/20/25 08:58 100 MG Nitroglycerin 0.4 mg Q5MINP PRN SL 03/17/25 11:00 Morphine Sulfate 2 mg Q30M PRN IV 03/17/25 11:00 Metformin HCl 1,000 mg BIDWM PO 03/17/25 18:00 03/20/25 08:57 1,000 MG Lactated Ringer's 1,000 ml @ 75 mls/hr [id number] IV 03/17/25 13:00 03/20/25 08:57 75 MLS/HR Carisoprodol 350 mg TID PO 03/18/25 22:00 03/20/25 12:31 350 MG Morphine Sulfate 2 mg Q4HP PRN IV 03/18/25 15:45 03/20/25 15:30 2 MG Diagnostic Test (Pha) 1 strip ACHS 03/20/25 17:00 Insulin Human Regular HS SC 03/20/25 22:00 Insulin Human Regular AC SC 03/20/25 12:30 03/20/25 12:28 15 UNITS Dextrose 50 ml UD PRN IV 03/20/25 12:15 Laboratory Results Laboratory Tests 03/19/25 17:13 Chemistry Test 03/19/25 17:13 Calcium Level 9.9 mg/dL (8.7-10.4) HgA1c, TSH Test 03/20/25 13:55 Hemoglobin A1c 7.5 % A1C (<5.7) H Assessment/Plan Assessment/Plan 74-year-old male with a known history of insulin-dependent diabetes mellitus type 2, hypertension, dyslipidemia is here for elective surgery. 1. Hypertension 2. Diabetes mellitus type 2 3. Dyslipidemia 4. Post laminectomy syndrome status post L4-5 S1 spine surgery. -continue pain meds as needed, follow up orthopedic spine surgery, Accu-Cheks q.a.c. and HS low-dose regular insulin sliding scale, physical therapy evaluation and treatment Plan discussed with: Patient My Orders Orders - DEWEY GIBBONS MD Procedure Category Date Status Time Glucose Blood PHA 03/20/25 In Process (Accu-Chek Comfort 17:00 Insulin R (Human) PHA 03/20/25 In Process (Insulin R) 22:00 Insulin R (Human) PHA 03/20/25 In Process (Insulin R) 12:30 Dextrose 50% Syringe PHA 03/20/25 In Process 12:15 Date of Service: Mar 20, 2025 Billing Provider: DEWEY GIBBONS MD Common Visit Codes: NOT BILLABLE DEWEY GIBBONS MD Mar 20, 2025 15:34
[2025-03-20 17:00] VITALS: BP 148/77; PULSE 98; RESP 18; TEMP 98.1; O2SAT 94
[2025-03-20] MEDS: ACCU-CHEK COMFORT CURVE STRIP VI SCH (17:00)
[2025-03-20 21:00] VITALS: BP 143/75; PULSE 100; RESP 16; TEMP 99.9; O2SAT 93
[2025-03-21 01:00] VITALS: BP 136/70; PULSE 96; RESP 16; TEMP 100.5; O2SAT 94
[2025-03-21 05:00] VITALS: BP 139/76; PULSE 86; RESP 16; TEMP 98.6; O2SAT 94
[2025-03-21] MEDS: MAGNESIUM CITRATE SOLUTION 300 ML BTL PO ONE (08:52)
[2025-03-21 09:00] VITALS: BP 153/81; PULSE 96; RESP 16; TEMP 99.1; O2SAT 94
[2025-03-21 12:55] VITALS: BP 135/76; PULSE 92; RESP 17; TEMP 99.3; O2SAT 91
[2025-03-21] MEDS ORDERED: CARI-579 PO (13:55)
[2025-03-21] MEDS ORDERED: HYDR-4798 PO (13:55)
[2025-03-21] MEDS ORDERED: DOCU-265 PO (13:55)
--- NOTE | 2025-03-21 14:10 | DVHDS2 ---
ASSESSMENT ASSESSMENT Hospital Course The patient arrived for a elective spine surgery with Dr. URIBE. Surgery went as planned with no complications. After a short stay in the PACU patient was admitted to the hospital for postoperative care and pain management over the course of 4 postoperative days the patient was able to tolerate a diet, ambulate independently, the pain has been managed with oral analgesics. The surgical site is well-approximated with sutures, some residual drainage continues from drain insertion sites after removal, however it is manageable with daily wound care and dressing changes. Some improvement to preoperative symptoms of extremities, strength and motion. There is new post operative pain that is localized to the surgical site. 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 Patient doing well post fall with no complaints The patient will follow-up with Dr. Uribe for wound check and suture check . 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 Problems: (1) Hypertension Assessments: Continue treatment as directed by your PCP, continue medications as prescribed by your primary care provider (2) Postoperative pain after spinal surgery Assessments: Medication for pain sent to your pharmacy of choice (3) Hyperglycemia Assessments: Continue treatment as directed by your PCP, continue medications as prescribed by your primary care provider (4) Muscle spasm of back Assessments: Medications for muscle spasm sent to your pharmacy of choice, continue administering one tablet every 8 hours to prevent muscle spasms CHRISTINA WILSON NP Mar 21, 2025 14:10
--- NOTE | 2025-03-21 14:13 | DVHDS2 ---
Discharge Summary Date of Admission Mar 17, 2025 at 10:56 Date of Discharge: Mar 21, 2025 Admitting Diagnosis Lumbar Degenerative Disk Disease and Lumbar Spinal Stenosis causing Incapacitating back pain, radiculopathy/neurogenic claudication and progressive neurologic deficit Wounds: Posterior lumbar wound covered with robina dressing, which is functional seal is intact. Drain sites of the right lateral covered with dressing no leaking Labs/Diagnostic Data: Laboratory Results Test 03/21/25 11:34 03/20/25 13:55 03/19/25 17:13 POC Glucose 228 mg/dl (70-106) Hemoglobin A1c 7.5 % A1C (<5.7) White Blood Count 13.0 10^3/uL (4.4-10.8) Red Blood Count 4.66 10^6/uL (4.5-5.90) Hemoglobin 14.2 g/dL (13.5-17.5) Hematocrit 42.3 % (41.0-53.0) Mean Corpuscular Volume 90.7 fL (80.0-100.0) Mean Corpuscular Hemoglobin 30.4 pg (28.0-32.0) Mean Corpuscular Hemoglobin Concent 33.6 g/dL (32.0-36.0) Red Cell Distribution Width 13.4 % (11.8-14.3) Platelet Count 229 10^3/uL (140-450) Mean Platelet Volume 8.2 fL (6.9-10.8) Neutrophils (%) (Auto) 82.0 % (37.0-80.0) Lymphocytes (%) (Auto) 8.5 % (10.0-50.0) Monocytes (%) (Auto) 8.5 % (0.0-12.0) Eosinophils (%) (Auto) 0.5 % (0.0-7.0) Basophils (%) (Auto) 0.5 % (0.0-2.0) Neutrophils # (Auto) 10.6 10 ^3/uL (1.6-8.6) Lymphocytes # (Auto) 1.1 10 ^3/uL (0.4-5.4) Monocytes # (Auto) 1.1 10 ^3/uL (0-1.3) Eosinophils # (Auto) 0.1 10 ^3/uL (0-0.8) Basophils # (Auto) 0.1 10 ^3/uL (0-0.2) Nucleated Red Blood Cells 0.0 % Sodium Level 138 mmol/L (136-145) Potassium Level 4.1 mmol/L (3.5-5.1) Chloride Level 101 mmol/L (98-107) Carbon Dioxide Level 28 mmol/L (20-31) Anion Gap 9 (5-15) Blood Urea Nitrogen 12 mg/dL (9-23) Creatinine 0.98 mg/dL (0.700-1.30) Glomerular Filtration Rate Calc 80 mL/min (>90) BUN/Creatinine Ratio 12.2 (10.0-20.0) Serum Glucose 265 mg/dL (74-106) Calcium Level 9.9 mg/dL (8.7-10.4) Other Laboratory Tests 03/19/25 17:13 Brief Hx & Hospital Course: The patient arrived for a elective spine surgery with Dr. URIBE. Surgery went as planned with no complications. After a short stay in the PACU patient was admitted to the hospital for postoperative care and pain management over the course of 4 postoperative days the patient was able to tolerate a diet, ambulate independently, the pain has been managed with oral analgesics. The surgical site is well-approximated with sutures, some residual drainage continues from drain insertion sites after removal, however it is manageable with daily wound care and dressing changes. Some improvement to preoperative symptoms of extremities, strength and motion. There is new post operative pain that is localized to the surgical site. Patient did experience a fall while attempting to bean picker a cell phone that he had dropped, upon assessment by the nursing staff patient revealed that he was not injured and there were no deficits no changes in pain. Patient doing well post fall with no complaints The patient will follow-up with Dr. Uribe for wound check and suture check . General Appearance: None, Normal HEENT: Other (No complaints of head and neck pain) Neck: None, Non-Tender, Normal, Normal Inspection Respiratory: No Accessory Muscle Use, None, No Respiratory Distress Cardiovascular: No JVD, Other (Skin is pink warm and dry) Extremities: Normal capillary refill, Normal range of motion, Other (preoperative pain lifting legs to resistance right greater than left- patient reports resolution in this preoperative symptom) Neurologic: No Motor Deficits Cerebellar Function: Normal, Other (No complaints of ambulatory problems) Reflexes: Normal, None Skin: Posterior lumbar surgical site Operations or Procedures Procedure: Revision lumbar 5 laminotomies/ foraminotomies and facetectomies to decompress central canal and Lumbar 5 nerve roots Revision lumbar 4 laminotomies/ foraminotomies and facetectomies to decompress central canal and Lumbar 4 nerve roots Bilateral Sacral 1 Laminotomies/Foraminotomies/Facetectomies to decompress the central canal and Bilateral Sacral 1 nerve Roots Lumbar 4 to 5 posterior spinal interbody fusion with PEEK cage Lumbar 5 to sacral 1 posterior spinal inter transverse fusion with bone graft Lumbar 4 to sacral 1 posterior spinal instrumentation with pedicle screws Condition at Discharge: Good Final Diagnosis/Problems List Medications for muscle spasm sent to your pharmacy of choice, continue administering one tablet every 8 hours to prevent muscle spasms Problems List: (1) Hypertension Status: Chronic (2) Muscle spasm of back Status: Acute (3) Postoperative pain after spinal surgery Status: Acute (4) Hyperglycemia Status: Chronic Discharge Disposition: Home with Health Services Discharge Instruct/Medications Diet: Cardiac 2g Na,low cholest Diet comment: Avoid excessive processed sugar, if simple carbohydrates until your wound healing is complete keep your blood sugar in check Activity: Light activity Activity comment: Caution with any excessive bending, lifting or twisting. Follow Up/Referral: Call [phone] for a appointment, or to change or confirm your appoinment [id number] [facility], [address], [place] [id number] Medications: Medications for postop pain, postoperative muscle spasms and constipation sent to patient's pharmacy of choice Patient to continue his medication for hypertension, hyperglycemia and headache as prescribed by his PCP New Medications: Carisoprodol (Carisoprodol) 350 Mg Tab 350 MG PO TID for 30 Days, #90 TAB Docusate Sodium (Docusate Sodium) 100 Mg Cap 100 MG PO BID for 30 Days, #30 CAP Hydrocodone-Acetaminophen (Hydrocodone Bitartrate/AC 10-325 mg) 1 Tab Tab 1 TAB PO Q6HP PRN for 7 Days, #28 TAB Continued Medications: Atorvastatin Calcium (Atorvastatin Calcium) 80 Mg Tab 80 MG PO DAILY, TAB Cyclobenzaprine HCl (Cyclobenzaprine Hydrochlo) 10 Mg Tab 10 MG PO DAILY, TAB Dextrose (Glucose) 4 Gm Chw 4 GM PO PRN, TAB.CHEW Doxycycline Hyclate (Doxycycline Hyclate) 100 Mg Tab 100 MG PO BID, TAB Empagliflozin (Jardiance) 25 Mg Tab 25 MG PO DAILY, TAB Insulin Aspart (Insulin Aspart Flexpen) 100 Unit/Ml Inj 100 UNIT SC DAILY@DINNER, INJ Insulin Aspart (Novolog) 100 Unit/Ml Inj 100 UNIT IJ BID, INJ Krill Oil (Krill Oil) 1,000 Mg Cap 1000 MG PO DAILY, CAP Metformin Hydrochloride (Metformin Hcl) 1,000 Mg Tab 1000 MG PO BID, TAB Multiple Vitamin (Multivitamins) Tab 1 TAB PO DAILY, #30 TAB 2 Refills Oxybutynin Chloride (Oxybutynin Chloride) 5 Mg/5 Ml Norma 10 MG PO, ML Semaglutide (Ozempic) 8 Mg/3 Ml Inj 10 MG SC QWEEKLY, INJ Discharge Statement: "Patient was advised to return to the ER or call 911 if any headaches, dizziness, shortness of breath, chest pain, abdominal pain, bleeding, fevers, or worsening of medical condition. Patient was counseled about treatment plan, medications, possible side effects, patientverbalized understanding. All questions were answered to the best of my ability. This discharge took greater then 30 minutes in planning, reviewing documentation, counseling the patient, and discussing with other team members." ASSESSMENT ASSESSMENT Hospital Course The patient arrived for a elective spine surgery with Dr. URIBE. Surgery went as planned with no complications. After a short stay in the PACU patient was admitted to the hospital for postoperative care and pain management over the course of 4 postoperative days the patient was able to tolerate a diet, ambulate independently, the pain has been managed with oral analgesics. The surgical site is well-approximated with sutures, some residual drainage continues from drain insertion sites after removal, however it is manageable with daily wound care and dressing changes. Some improvement to preoperative symptoms of extremities, strength and motion. There is new post operative pain that is localized to the surgical site. Patient did experience a fall while attempting to bean picker a cell phone that he had dropped, upon assessment by the nursing staff patient revealed that he was not injured and there were no deficits no changes in pain. Patient doing well post fall with no complaints The patient will follow-up with Dr. Uribe for wound check and suture check . Assessment Medications for muscle spasm sent to your pharmacy of choice, continueadministering one tablet every 8 hours to prevent muscle spasms Problems: (1) Hypertension Assessments: Continue treatment as directed by your PCP, continue medications as prescribed by your primary care provider (2) Postoperative pain after spinal surgery Assessments: Medication for pain sent to your pharmacy of choice (3) Hyperglycemia Assessments: Continue treatment as directed by your PCP, continue medications as prescribed by your primary care provider (4) Muscle spasm of back Assessments: Medications for muscle spasm sent to your pharmacy of choice, continue administering one tablet every 8 hours to prevent muscle spasms CHRISTINA WILSON NP Mar 21, 2025 14:13
[2025-03-21 15:06] VITALS: BP 135/76; PULSE 92; RESP 17; TEMP 99.3; O2SAT 92
[2025-03-21 16:49] VITALS: BP 161/88; PULSE 91; RESP 16; TEMP 99.7; O2SAT 91
== END 2025-03-21 17:00 | disposition home health service (06) | DRG 402 ==
LOC: SUR 06:14 → OVERFLOW 10:56 → EAST 15:19
PROVIDERS: ADMIT Internal Medicine; ATTEND Internal Medicine
PROC: 01NR0ZZ Release Sacral Nerve, Open Approach (ICD-10-PCS; 2025-03-17)
PROC: 01NB0ZZ Release Lumbar Nerve, Open Approach (ICD-10-PCS; 2025-03-17)
PROC: 0SG30K1 Fusion of Lumbosacral Joint with Nonautologous Tissue Substitute, Posterior Approach, Posterior Column, Open Approach (ICD-10-PCS; 2025-03-17)
PROC: 4A11X4G Monitoring of Peripheral Nervous Electrical Activity, Intraoperative, External Approach (ICD-10-PCS; 2025-03-17)
PROC: 0SG00AJ Fusion of Lumbar Vertebral Joint with Interbody Fusion Device, Posterior Approach, Anterior Column, Open Approach (ICD-10-PCS; principal; 2025-03-17 07:59)
DX: M96.1 Postlaminectomy syndrome, not elsewhere classified (principal); E78.5 Hyperlipidemia, unspecified; E11.65 Type 2 diabetes mellitus with hyperglycemia; G89.18 Other acute postprocedural pain; I10 Essential (primary) hypertension; Z79.4 Long term (current) use of insulin; Z79.899 Other long term (current) drug therapy; M47.26 Other spondylosis with radiculopathy, lumbar region; M48.062 Spinal stenosis, lumbar region with neurogenic claudication
CPT/HCPCS: 36415; 72100; 76000; 80048; 82962; 83036; 85025; 86850; 86900; 86901; 97110; 97116; 97163; 97530; G0378; J0131; J1815; J1956; J2250; J2405; J2704; J7042